=== PATIENT | male | born 2000 | race Hispanic/Latino ===

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

== ENCOUNTER 2022-08-06 18:33 | Emergency (ER) | payer BC, MEDICAID, OTHER ==
[~2022-08-06] VITALS: Ht 170.2 cm; Wt 78.0 kg
[2022-08-06] MEDS ORDERED: KETOROLAC 60 MG VIAL (30MG/ML) IM ONE (20:30)
[2022-08-06] MEDS ORDERED: IBUP-2070 PO (22:36)
[2022-08-06 22:44] VITALS: BP 118/67
== END 2022-08-06 22:57 | disposition home or self-care (01) ==
LOC: EDH 18:33
DX: S93.402A Sprain of unspecified ligament of left ankle, initial encounter (principal); W18.39XA Other fall on same level, initial encounter; Y93.89 Activity, other specified; Y92.89 Other specified places as the place of occurrence of the external cause; Y99.8 Other external cause status
CPT/HCPCS: 99284; 73600; 96372; J1885